=== PATIENT | female | born 2000 | race Caucasian/White ===

== ENCOUNTER 2018-10-13 19:55 | Emergency (ER) | payer BC ==
[~2018-10-13] VITALS: Ht 149.9 cm; Wt 56.7 kg
[2018-10-13 20:06] VITALS: BP 116/76
--- NOTE | 2018-10-13 20:08 | NUR ---
PT AMBULATORY TO BR THEN TO ER LOBBY W/ STEADY GAIT IN STABLE CONDITION.
[2018-10-13 21:21] LABS: APPEARANCE,URINE HAZY (CLEAR); BILIRUBIN,URINE NEGATIVE (NEGATIVE); BLOOD, URINE NEGATIVE (NEGATIVE); COLOR,URINE YELLOW (YELLOW); LEUKOCYTE ESTERASE ,URINE 2+ (NEGATIVE); NITRITE, URINE NEGATIVE (NEGATIVE); UGLUCOSE NEGATIVE (NEGATIVE)
[2018-10-13 21:22] LABS: BASOPHILS % (AUTO) 0.4 % (0.0-2.0); EOSINOPHILS # (AUTO) 0.2 K/uL (0-0.4); HEMATOCRIT 39.2 % (36-48); HEMOGLOBIN 13.3 g/dL (12.0-16.0); LYMPHOCYTES # (AUTO) 2.7 K/uL (2.5-16.5); LYMPHOCYTES % (AUTO) 34.9 % (20.5-51.1); MEAN CORPUSCULAR HEMOGLOBIN 28 pg (27-31); MEAN CORPUSCULAR HGB CONC 34 g/dL (33-37); MEAN CORPUSCULAR VOLUME 83.9 fL (80-94); MONOCYTES # (AUTO) 0.5 K/uL (0.8-1.0); MONOCYTES % (AUTO) 6.3 % (1.7-9.3); NEUTROPHILS # (AUTO) 4.4 K/uL (1.8-7.7); NEUTROPHILS % (AUTO) 55.4 % (42.2-75.2); PLATELET COUNT (AUTO) 279 K/uL (140-450); RED BLOOD CELL COUNT(AUTO) 4.67 MIL/uL (4.20-5.40); RED CELL DISTRIBUTION WIDTH 13.9 % (11.6-13.7); WHITE BLOOD COUNT (AUTO) 7.9 K/uL (4.5-11.0)
--- NOTE | 2018-10-13 21:27 | NUR ---
PT TAKEN TO BED 12
[2018-10-13 21:30] LABS: RBC,URINE 0-5 /HPF (0-5); WBC,URINE >25 (MANY) /HPF (0-5)
[2018-10-13 21:33] LABS: ANION GAP 12.5 (8-16); CARBON DIOXIDE 25.3 mmol/L (21-32); CREATININE 0.7 mg/dL (0.6-1.3); POTASSIUM 3.8 mmol/L (3.5-5.1)
[2018-10-13 21:37] LABS: ALBUMIN 3.9 g/dL (3.4-5.0); TOTAL BILIRUBIN 0.4 mg/dL (0.0-1.0)
--- NOTE | 2018-10-13 21:55 | NUR ---
18 YO F BIB SELF C/O 5/10 DULL LOWER ABD PAIN X 2 WEEKS ACCOMPANIED BY URINARY BURNING, URGENCY, AND FREQUENCY. PT ALSO REPORTS NAUSEA, CHILLS, SUBJECTIVE FEVER. PMH-- DENIES RX-- DENIES PT IS CALM, COOPERATIVE, BEHAVIOR APPROPRIATE. SKIN PINK, DRY, WARM. VSS. NO APPARENT DISTRESS AT THIS TIME. PT POSITIONED FOR COMFORT. HOB ELEVATED. SIDE RAIL UP X1. BED IN LOWEST POSITION.
[2018-10-13 23:15] VITALS: BP 112/74
--- NOTE | 2018-10-13 23:15 | NUR ---
Patient discharged with v/s stable. Written and verbal after care instructions given and explained. Patient alert, oriented and verbalized understanding of instructions. Ambulatory with steady gait. All questions addressed prior to discharge. ID band removed. Patient advised to follow up with PMD. Rx of MIRALAX, CIPRO, AND SIMETHICONE given. Patient educated on indication of medication including possible reaction and side effects. Opportunity to ask questions provided and answered.
== END 2018-10-13 23:15 | disposition home or self-care (01) ==
LOC: MED 19:55
DX: N39.0 Urinary tract infection, site not specified (principal); K59.00 Constipation, unspecified
CPT/HCPCS: 36415; 74018; 80053; 81001; 81025; 85025; 87086; 99284; Q0092